=== PATIENT | female | born 1965 | race Caucasian/White ===

== ENCOUNTER 2018-12-11 19:17 | Inpatient (IN) | payer MEDICARE ==
[~2018-12-11] VITALS: Ht 170.2 cm; Wt 105.0 kg
[2018-12-11] MEDS ORDERED: GLUCOPHAGE500 MG PO (19:23)
[2018-12-11] MEDS ORDERED: GLIMEPIRIDE4 MG PO (19:23)
[2018-12-11] MEDS ORDERED: AMBIEN10 MG PO (19:24)
[2018-12-11] MEDS ORDERED: RISPERDAL1 MG PO (19:24)
[2018-12-11] MEDS ORDERED: EFFEXOR XR150 MG PO (19:24)
[2018-12-11] MEDS ORDERED: FAMOTIDINE10 MG PO (19:24)
[2018-12-11] MEDS ORDERED: NORVASC10 MG PO (19:25)
[2018-12-11] MEDS ORDERED: PLAVIX75 MG PO (19:25)
[2018-12-11] MEDS ORDERED: CHRONULAC30 ML PO (19:25)
[2018-12-11] MEDS ORDERED: NOVOLIN 70/30 110 ML SC (19:25)
[2018-12-11] MEDS ORDERED: FUROSEMIDE20 MG PO (19:26)
[2018-12-11] MEDS ORDERED: JULUCA (19:26)
[2018-12-11] MEDS ORDERED: ULTRAM50 MG PO (19:27)
[2018-12-11] MEDS ORDERED: ALDACTONE50 MG PO (19:27)
--- NOTE | 2018-12-11 19:30 | NUR ---
PT TRANSFERRED FROM [facility], WAS SUPPOSED TO BE A DIRECT ADMIT TO ICU. PT IS VERBALLY LOUD, HALLORING OUT, NOT MAKING ANY SENSE, DOESN'T ANSWER QUESTIONS. VITAL SIGNS ARE STABLE. ARRIVED WITH INDWELLING WREN DRAINING DARK CLOUDY URINE APPROX 350 CC UPON ARRIVAL.
[2018-12-11 20:29] LABS: ALBUMIN 2.5 g/dL (3.4-5.0); ANION GAP 20.3 mmol/L (8-16); BILIRUBIN - TOTAL 1.71 mg/dL (0.2-1.3); CALCIUM 8.2 mg/dL (8.5-10.1); CARBON DIOXIDE 18.9 mmol/L (21.0-32.0); CREATININE - SERUM 2.1 mg/dL (0.6-1.3); POTASSIUM - SERUM 5.2 mmol/L (3.5-5.1); PROTEIN - SERUM 7.8 g/dL (6.4-8.2)
--- NOTE | 2018-12-11 20:30 | NUR ---
PT CONTINUES TO HOLLAR OUT, NO APPEARANCE OF PAIN, SKIN INTACT, VITAL SIGNS STABLE. NO ABLE TO ANSWER QUESTIONS APPROPRIATELY. PATIENT IS ON MONITOR, AND IS BEING WATCHED CLOSELY.
[2018-12-11 20:38] LABS: HEMATOCRIT 30.6 % (36.0-48.0); HEMOGLOBIN 9.9 g/dL (12-16); MCH 28.1 pg (26.0-34.0); MCHC 32.4 g/dL (31.0-37.0); MCV 86.9 fL (80.0-100.0); MEAN PLATELET VOLUME 12.1 fL (7.4-10.4); PLATELET COUNT 161 10x3/uL (130-400); RBC 3.52 10x6/uL (4.00-5.40); WBC 16.7 10x3/uL (4.8-10.8)
[2018-12-11 20:45] VITALS: BP 114/72
[2018-12-11 21:00] VITALS: BP 128/67
--- NOTE | 2018-12-11 21:00 | NUR ---
MEDICATION GIVEN PER ORDER, GEODON WAS EFFECT DECLINE OF ANXIETY.
[2018-12-11 21:15] LABS: INR 1.21 (0.85-1.17); PROTIME 14.7 SECONDS (11.6-15.0)
[2018-12-11 21:31] LABS: LYMPHOCYTES 23 % (15-50); NEUTROPHILS 77 % (40-80); PLATELET ESTIMATE NORMAL
[2018-12-11 21:37] LABS: CKMB 18.1 U/L (0.0-3.6); CREATINE KINASE 602 UL (21-215)
[2018-12-11 21:44] LABS: TROPONIN-I 7.685 ng/mL (0.000-0.060)
[2018-12-11 21:55] LABS: APPEARANCE CLEAR (CLEAR); BILIRUBIN NEGATIVE (NEGATIVE); COLOR YELLOW (YELLOW); GLUCOSE 100 mg/dL (NEGATIVE); KETONE NEGATIVE (NEGATIVE); NITRITE NEGATIVE (NEGATIVE); PROTEIN 1+ mg/dL (NEGATIVE); SPECIFIC GRAVITY 1.025 (1.005-1.020); UROBILINOGEN NORMAL (NORMAL)
[2018-12-11 22:00] VITALS: BP 118/82
--- NOTE | 2018-12-11 22:00 | NUR ---
ANASTASIADON WAS EFFECTIVE FOR APPROX 1 HR, PATIENT IS YELLING OUT, MD AWARE. CRITICAL LABS CALLED, MD NOTIFIED.
[2018-12-11 23:00] VITALS: BP 122/73
--- NOTE | 2018-12-11 23:30 | NUR ---
PT LAYING ON STRETCHER YELLING OUT, VITAL SIGNS ARE STABLE, NS INFUSING PER ORDER.
[2018-12-11 23:45] VITALS: BP 138/79
[2018-12-12] VITALS (11 sets, daily range): BP systolic 71–152; BP diastolic 35–95; Ht 170.2 cm; Wt 105.0 kg
--- NOTE | 2018-12-12 01:47 | NUR ---
FLAGYL INFUSION COMPLETE AT THIS TIME.
[2018-12-12 03:24] LABS: HEMATOCRIT 31.5 % (36.0-48.0); HEMOGLOBIN 10.3 g/dL (12-16); MCH 28.2 pg (26.0-34.0); MCHC 32.7 g/dL (31.0-37.0); MCV 86.3 fL (80.0-100.0); PLATELET COUNT 215 10x3/uL (130-400); RBC 3.65 10x6/uL (4.00-5.40); RDW 15.1 % (11.5-14.5)
[2018-12-12 03:50] LABS: ALBUMIN 2.7 g/dL (3.4-5.0); ALKALINE PHOSPHATASE 245 U/L (46-116); BILIRUBIN - TOTAL 2.11 mg/dL (0.2-1.3); CALC OSMOLALITY 294 mosm/kg (275-300); CALCIUM 8.5 mg/dL (8.5-10.1); CARBON DIOXIDE 16.2 mmol/L (21.0-32.0); CHLORIDE - SERUM 98 mmol/L (98-107); CKMB 18.1 U/L (0.0-3.6); CREATININE - SERUM 2.2 mg/dL (0.6-1.3); GLUCOSE 350 mg/dL (74-106); MAGNESIUM - SERUM 1.7 mg/dL (1.8-2.4); PROTEIN - SERUM 8.1 g/dL (6.4-8.2); SODIUM 133 mmol/L (136-145); UREA NITROGEN 54 mg/dL (7-18); eGFR NON AFRICAN AMERICAN 25 mL/min (90-120)
[2018-12-12 03:52] LABS: ALT (SGPT) 157 U/L (10-68); CREATINE KINASE 889 UL (21-215); TROPONIN-I 8.793 ng/mL (0.000-0.060)
[2018-12-12 03:56] LABS: LYMPHOCYTES 8 % (15-50); MONOCYTES 11 % (2-11); NEUTROPHILS 81 % (40-80); PLATELET ESTIMATE NORMAL
[2018-12-12] MEDS ORDERED: HUMULIN R100 U/ML SC (04:25)
--- NOTE | 2018-12-12 04:50 | NUR ---
STATUS CHANGE, WENT TO REPOSITION PATIENT, SHE STOPPED YELLING, STARTED PURSE LIP BREATHING. MD CALLED TO THE ROOM, EKG REPEATED, NURSES IN TO ASSIST.
--- NOTE | 2018-12-12 05:10 | NUR ---
RESP TO BEDSIDE.
--- NOTE | 2018-12-12 05:20 | NUR ---
MD AT BEDSIDE WILL INTUBATE, RESP AT BEDSIDE.
--- NOTE | 2018-12-12 05:25 | NUR ---
PT TOLERATED INTUBATION WELL, MEDICATIONS GIVEN PER ORDER. X-RAY TO BEDSIDE TO CONFIRM TUBE PLACEMENT.
--- NOTE | 2018-12-12 05:45 | NUR ---
SOFT WRIST RESTRAINTS PLACED ON JAISON WRIST TO PREVENT PT FROM PULLING OUT TUBE, RESTRAINT FORM SIGNED BY MD AND PLACED ON THE CHART.
--- NOTE | 2018-12-12 06:02 | NUR ---
REPORT GIVEN TO NICOLE COSME,
--- NOTE | 2018-12-12 06:22 | NUR ---
TITRATED DIPRAVAN TO AFFECT AT 30MIC/MIN
--- NOTE | 2018-12-12 06:23 | NUR ---
TITRATED PROPOFOL TO AFFECT AT 30 MCG/KG/MIN
--- NOTE | 2018-12-12 07:57 | NUR ---
SOFT WRIST RESTRAINTS REMOVED FOR A MINUTE, SALINE LOCK STARTED IN LEFT WRIST WITH 22 GAUGE. FLAGYL GOING AT THIS TIME. RESTRAINTS BACK ON. PT RESTING , NO AGITATION NOTED
--- NOTE | 2018-12-12 08:33 | NUR ---
BLOOD PRESSURE LOW, DIPRIVAN LOWERED TO 25MCG. NOTIFIED
--- NOTE | 2018-12-12 08:38 | NUR ---
DECREASED DIPRIVAN TO 20.83MCG DUE TO LOW BLOOD PRESSURE.
--- NOTE | 2018-12-12 08:44 | NUR ---
RADIOLOGIST CALLED STATES TUBE NEEDS TO BE PULLED BACK 3 CM.
--- NOTE | 2018-12-12 08:47 | NUR ---
RESP. NOTIFIED OF TUBE, PT IN [facility], CALL OUT TO DR. BUENO.
--- NOTE | 2018-12-12 08:59 | NUR ---
DECREASED DIPRIVAN TO 18.75MCG. BLOOD PRESSURE 75/36
--- NOTE | 2018-12-12 09:05 | NUR ---
PT ASYSTOLE ON MONITOR, DR. CLEMENTS IN ROOM, WITH NURSES, CPR INITIATED, EPI, GIVEN , BICARB GIVEN. PROPOFOL STOPPED.
--- NOTE | 2018-12-12 09:10 | NUR ---
PULSE WITH DOPPLER NOTED. CADE. UP PULSE 70, BLOOD PRESSURE 88/37 REMAINS AT BEDSIDE.
--- NOTE | 2018-12-12 09:28 | NUR ---
DR. BUENO CALLS BACK, DR. CLEMENTS UPDATES HIM ON PT.
[2018-12-12 09:29] LABS: CKMB 18.3 U/L (0.0-3.6); CREATINE KINASE 979 UL (21-215); TROPONIN-I 11.532 ng/mL (0.000-0.060)
--- NOTE | 2018-12-12 09:42 | NUR ---
NOREPI, INCREASED 25MCG. DUE TO BP 71/35. BOLUS OF NS GOING IN.
--- NOTE | 2018-12-12 09:47 | NUR ---
INCREASED NOREPI. 30MCG. PT PULSE DROPPED ASYSTOLE, CALLED BACK TO ROOM, CPR IN PROGRESS
--- NOTE | 2018-12-12 09:49 | NUR ---
PULSE BACK 62, CPR.STOPPED. NOREPI INCREASE [address] CLEMENTS. BP 62/29.
--- NOTE | 2018-12-12 09:54 | NUR ---
BLOOD PRESSURE 107/37, MAP 60. PULSE 92
[2018-12-12 10:20] LABS: BASOPHILS 0.4 % (0-2); EOSINOPHILS 0.3 % (0-7); HEMOGLOBIN 9.4 g/dL (12-16); IMMATURE GRANULOCYTES 4.9 % (0-5); LYMPHOCYTES 11.3 % (15-50); MCH 28.1 pg (26.0-34.0); MCHC 30.3 g/dL (31.0-37.0); MCV 92.8 fL (80.0-100.0); MEAN PLATELET VOLUME 12.4 fL (7.4-10.4); MONOCYTES 12.2 % (2-11); NEUTROPHILS 70.9 % (40-80); PLATELET COUNT 171 10x3/uL (130-400); RBC 3.34 10x6/uL (4.00-5.40); RDW 15.9 % (11.5-14.5); WBC 27.8 10x3/uL (4.8-10.8)
--- NOTE | 2018-12-12 10:26 | NUR ---
SODIUM BICARB X2 GIVEN, DOPAMINE GTT AT 10MCG BLOOD PRESSURE 74/33 PULSE 69
[2018-12-12 10:27] LABS: BILIRUBIN - TOTAL 1.78 mg/dL (0.2-1.3); CALCIUM 7.9 mg/dL (8.5-10.1); CARBON DIOXIDE 12.8 mmol/L (21.0-32.0); CREATININE - SERUM 2.5 mg/dL (0.6-1.3); PROTEIN - SERUM 6.3 g/dL (6.4-8.2)
--- NOTE | 2018-12-12 10:27 | NUR ---
CRITICAL LAB AMMONIA = 94; PRIMARY RN, LEONARD RANGEL.
[2018-12-12 10:28] LABS: ANION GAP 30.2 mmol/L (8-16)
--- NOTE | 2018-12-12 10:28 | NUR ---
MILA LEVEL 4, CALLED FROM LAB.
--- NOTE | 2018-12-12 10:34 | NUR ---
DR. BUENO INFORMED OF CRITICAL AMMONIA OF 94 FACE TO FACE IN ER.
--- NOTE | 2018-12-12 10:48 | NUR ---
LACTIC ACID= 17.1; DR. BUENO INFORMED AT PT'S BEDSIDE AT THIS TIME.
--- NOTE | 2018-12-12 11:15 | NUR ---
CM called and spoke to patient's sister Becky Wilkins TASHIA at approxomatley 1015 and infomred her that he pateint's status had declined and she was requiring CPR. CM wanted to verify the code status with her and Becky stated that she wanted us to do everthing we could till she could get her with her grandson. BEVERLEY gave this information to Dr. Sultana and Dr. Mc. 1110- Dr. Alegre reqeusted that CM call pateint's POA so he could talk to her. Multiple calls to her cell with a message left to return call. Becky called back and spoke to Dr. Mc.
[2018-12-12 11:20] LABS: CKMB 14.8 U/L (0.0-3.6)
[2018-12-12 11:21] LABS: CREATINE KINASE 902 UL (21-215); TROPONIN-I 11.689 ng/mL (0.000-0.060)
--- NOTE | 2018-12-12 11:29 | NUR ---
HEART STOPPED, DR. BUENO HERE, IV'S STOPPED RT HERE VENT OFF.
--- NOTE | 2018-12-12 14:09 | NUR ---
FAMILY HERE TO SEE PT. HOME NOTIFIED THAT FAMILY REQUESTED. [facility] [place] TALKED TO MARCELLA.
--- NOTE | 2018-12-12 14:13 | NUR ---
DR. BUENO HERE TO SPEAK WITH FAMILY.
--- NOTE | 2018-12-15 10:23 | EC ---
PATIENT:KEITH DATE OF SERVICE: 12/11/18 SEX: F MEDICAL RECORD: [id number] DATE OF : [birth year] [facility] AGE OF PATIENT: 53 ADMISSION DATE: 12/11/18 REFERRING PHYSICIAN: INTERPRETING PHYSICIAN: NAVEEN PRASAD MD ECHOCARDIOGRAM REPORT ECHO CHARGES 5 ECHO LIMITED Date: 12/12/18 CLINICAL DIAGNOSIS: EVALUATE EF ECHOCARDIOGRAPHIC MEASUREMENTS (adult normal given) AC root (d.<3.7cm) cm LV Septum d (<1.2 cm> cm Valve Excursion cm LV Septum (systole) cm Left Atria (s.<4.0cm> cm LVPW d(<1.2cm) cm RV (d.<2.3cm) cm LVPW (sytole) cm LV diastole(<5.6CM) cm MV E-F(>70mm/sec) cm LV systole cm LVOT Diameter cm MV exc.(>10mm) cm Est.ejection fraction (50-75%) % DOPPLER: LVIT cm/sec A cm/sec E cm/sec LA cm/sec RVSP mmHg LVOT cm/sec AOP1/2T m/s Asc. Ao cm/sec RVOT cm/sec RA cm/sec PA cm/sec AV Gradient Peak mmHg AV Mean mmHg AV Area cm MV Gradient Peak mmHg MV Mean mmHg MV Area cm COMMENTS: Solderer: Tomer BROWN Roofing Apprentice: 1 Dr. Prasad TAPE# PACS Pericardial Effusion N DATE OF SERVICE: 12/12/2018 PROCEDURE: Limited echocardiogram. FINDINGS: Left ventricular chamber size is within normal limits. Left ventricular systolic function is markedly reduced, overall ejection fraction, possibly 5%. The echo was done during a code procedure. The patient then rapidly after, hence the echo was only limited in nature for the ejection fraction. ECHOCARDIOGRAM REPORT [id number] KEITH TRANSINT:[id number] Voice Confirmation ID: [id number] DOCUMENT ID: [id number] NAVEEN PRASAD MD at 1023 CC: [id number] DICTATION DATE: 12/13/18 1204 WATER PURIFIER OPERATOR: 12/13/18 1422 DIS IN 12/12/18 [place] [address]
--- NOTE | 2018-12-17 15:19 | NUR ---
Per CMS protocol, restraint report logged into data base.
== END 2018-12-12 18:22 | DRG 974 ==
LOC: D.ER 19:17 → D.EDHOLD 23:38
PROVIDERS: Family Medicine; ADMIT Internal Medicine Nephrology
PROC: 0BH17EZ Insertion of Endotracheal Airway into Trachea, Via Natural or Artificial Opening (ICD-10-PCS; principal; 2018-12-12)
PROC: 5A12012 Performance of Cardiac Output, Single, Manual (ICD-10-PCS; 2018-12-12)
DX: B20 Human immunodeficiency virus [HIV] disease (principal); A41.9 Sepsis, unspecified organism; G92 Toxic encephalopathy; I21.4 Non-ST elevation (NSTEMI) myocardial infarction; J96.01 Acute respiratory failure with hypoxia; E87.1 Hypo-osmolality and hyponatremia; N39.0 Urinary tract infection, site not specified; N17.9 Acute kidney failure, unspecified; K72.90 Hepatic failure, unspecified without coma; K74.60 Unspecified cirrhosis of liver; E87.5 Hyperkalemia; E11.9 Type 2 diabetes mellitus without complications; D64.9 Anemia, unspecified; I11.0 Hypertensive heart disease with heart failure; I50.9 Heart failure, unspecified; K52.9 Noninfective gastroenteritis and colitis, unspecified; R57.0 Cardiogenic shock